=== PATIENT | female | born 1975 | race Two or more races ===

== ENCOUNTER → 2020-12-23 09:05 | Outpatient (BNVA) | payer MEDICAID, SELFPAY | PROVIDERS: Referring Provider Registered Nurse; Visit Provider Physician Assistant ==

== ENCOUNTER 2020-12-27 10:31 | Outpatient (REF) | payer MEDICAID, SELFPAY ==
[2020-12-27 11:15] LABS: MANUAL DIFF FLAG NO
[2020-12-27 11:19] LABS: Basophils Percent Auto 0.4 % (0-2); Eosinophils Absolute Auto 0.2 X10*3/uL (0.0-0.4); Eosinophils Percent Auto 2.8 % (0-4); Hemoglobin 12.7 g/dl (12.0-16.0); Imm Gran Abs Auto 0.03 X10*3/uL (0.00-0.03); Imm Gran Pct Auto 0.4 % (0.0-0.4); Lymphocytes Absolute Auto 2.1 X10*3/uL (1.2-4.9); Lymphocytes Percent Auto 29.1 % (20-40); Mean Corpuscular HGB Conc 32.6 g/dl (31.0-35.0); Mean Corpuscular Hemoglobin 29.7 pg (27.0-33.0); Mean Corpuscular Volume 91.1 fL (80-98); Mean Platelet Volume 10.1 fL (9.4-12.3); Monocytes Absolute Auto 0.6 X10*3/uL (0.1-1.2); Monocytes Percent Auto 8.1 % (2-11); Neutrophils Absolute Auto 4.2 X10*3/uL (2.0-8.3); Neutrophils Percent Auto 59.2 % (45-73); Platelet Count 317 X10*3/uL (160-400); Red Blood Count 4.28 X10*6/uL (4.20-5.50); White Blood Count 7.2 X10*3/uL (4.8-10.8)
[2020-12-27 11:41] LABS: Alanine Aminotransferase 18 U/L (0-31); Albumin Level 4.1 g/dL (3.5-5.0); Alkaline Phosphatase 85 U/L (39-117); Anion Gap 11 (12-20); Aspartate Amino Transferase 19 U/L (5-31); Bilirubin Total 0.8 mg/dL (0.0-1.0); Blood Urea Nitrogen 16 mg/dL (9-16); Calcium 9.2 mg/dL (8.4-10.2); Carbon Dioxide 26 mmol/L (22-29); Chloride 107 mmol/L (96-108); Cholesterol 169 mg/dL; Estimated Glomerular Filt Rate > 60; Glucose Random 97 mg/dL (60-115); HDL Cholesterol 37 mg/dL; LDL Cholesterol Calculated 112 mg/dl; Potassium 4.2 mmol/L (3.3-5.1); Sodium 140 mmol/L (135-145); Total Protein 7.2 g/dL (6.5-8.0); Triglycerides 100 mg/dL
[2020-12-27 12:02] LABS: Thyroid Stimulating Hormone 1.28 uIU/mL (0.32-4.0)
== END 2020-12-27 10:32 | disposition home or self-care (01) ==
LOC: HO.LAB 10:31
PROVIDERS: Visit Provider Physician Assistant
DX: R10.11 Right upper quadrant pain (principal); R74.01 Elevation of levels of liver transaminase levels; K76.0 Fatty (change of) liver, not elsewhere classified; K59.09 Other constipation
CPT/HCPCS: 36415; 80053; 80061; 84443; 85025

== ENCOUNTER 2021-01-01 09:57 | Outpatient (REF) | payer MEDICAID, SELFPAY ==
--- NOTE | ~2021-01-01 | FL_ITS ---
EXAMINATION: FL BARIUM SWALLOW CLINICAL INFORMATION: Gastroesophageal reflux disease. COMPARISON: None TECHNIQUE: Barium swallow examination is performed using fluoroscopic evaluation in addition to multiple fluoroscopic spot views. The patient is imaged both upright and prone and using both thick and thin sulfate along with effervescent granules. Fluoroscopy time: 1.5 minutes DAP: 23.6 Gycm2 Images: 57 FINDINGS: Following oral administration of thick barium and barium-coated turkey in upright view, there is normal propagation of bolus from the oral cavity through the pharynx, the esophagus into stomach without any evidence of obstruction, narrowing or stricture. On placing patient prone and oral administration of thin barium, there is good distention of the entire barium without any intraluminal filling defect or extrinsic impression. Mild gastroesophageal reflux was seen in supine lying position. There is no evidence of hiatal hernia. FL/FL barium swallow IMPRESSION: Unremarkable barium swallow exam.
== END 2021-01-01 09:58 | disposition home or self-care (01) ==
LOC: HO.XRAY 09:57
PROVIDERS: Visit Provider Physician Assistant
DX: K21.9 Gastro-esophageal reflux disease without esophagitis (principal)
CPT/HCPCS: 74220

== ENCOUNTER → 2021-02-05 12:48 | Outpatient (BNVA) | payer OTHER, SELFPAY | PROVIDERS: PCP Internal Medicine; Visit Provider Physician Assistant ==

== ENCOUNTER → 2021-02-09 14:17 | Outpatient (BNVA) | payer MEDICAID, SELFPAY | PROVIDERS: PCP Internal Medicine; Visit Provider Physician Assistant ==

== ENCOUNTER 2021-03-30 14:01 | Outpatient (REF) | payer MEDICAID, SELFPAY ==
--- NOTE | ~2021-03-30 | MM_ITS ---
EXAMINATION: MM SCREENING DIGITAL BREAST TOMOSYNTHESIS, BILATERAL CLINICAL INFORMATION: Screening. Asymptomatic. The lifetime risk of breast cancer based on the Tyrer-Cuzick Model is 7%. COMPARISON: Mammography: 03/28/2020, 03/16/2019, 07/25/2018, 01/18/2018, 01/03/2018 (baseline) TECHNIQUE: Digital breast tomosynthesis is performed in both the craniocaudal and mediolateral oblique views along with computer-aided detection (CAD). Synthesized 2D images are generated from the tomosynthesis. Additional right MLO view is provided. FINDINGS: There are scattered areas of fibroglandular density (ACR BI-RADS breast composition Category b). There are no significant masses, abnormal calcifications, or other abnormalities. No architectural abnormality. The axilla are unremarkable. The right breast has a new incidental group of 3 or 4 small benign oil cysts anterior 9:00 position, largest only 0.5 cm. The skin contours are smooth. There is no coarsening of the Jair's ligaments. MM/MM tomosynthesis screening BI IMPRESSION: 1. No mammographic evidence of malignancy. 2. Incidental small benign oil cysts anterolateral right breast. ASSESSMENT: BI-RADS 2: Benign RECOMMENDATION: Routine annual mammography screening. This patient's information was entered into a reminder system with a target due date for their next mammogram.
== END 2021-03-30 14:02 | disposition home or self-care (01) ==
LOC: HO.MAMMO 14:01
PROVIDERS: PCP Internal Medicine; Visit Provider Internal Medicine
DX: Z12.31 Encounter for screening mammogram for malignant neoplasm of breast (principal)
CPT/HCPCS: 77063; 77067

== ENCOUNTER 2022-04-05 13:05 | Outpatient (REF) | payer MEDICAID, SELFPAY ==
--- NOTE | ~2022-04-05 | MM_ITS ---
EXAMINATION: MM SCREENING DIGITAL BREAST TOMOSYNTHESIS, BILATERAL CLINICAL INFORMATION: Screening. Asymptomatic. The lifetime risk of breast cancer based on the Tyrer-Cuzick Model is 7%. COMPARISON: Mammography: 03/30/2021, 03/28/2020, 03/16/2019 TECHNIQUE: Digital breast tomosynthesis is performed in both the craniocaudal and mediolateral oblique views along with computer-aided detection (CAD). Synthesized 2D images are generated from the tomosynthesis. FINDINGS: There are scattered areas of fibroglandular density (ACR BI-RADS breast composition Category b). There is no significant mass and no architectural abnormality or abnormal calcifications. The oil cysts anterior outer right breast are decreased in size, one showing faint attenuation consistent with fat necrosis. There is no skin thickening or coarsening of the Jair's ligaments. The axilla are unremarkable. MM/MM tomosynthesis screening BI IMPRESSION: No significant changes from prior studies. ASSESSMENT: BI-RADS 2: Benign RECOMMENDATION: Routine annual mammography screening. This patient's information was entered into a reminder system with a target due date for their next mammogram.
== END 2022-04-05 13:06 | disposition home or self-care (01) ==
LOC: HO.MAMMO 13:05
PROVIDERS: PCP Nurse Practitioner; Visit Provider Nurse Practitioner
DX: Z12.31 Encounter for screening mammogram for malignant neoplasm of breast (principal)
CPT/HCPCS: 77063; 77067

== ENCOUNTER 2023-03-28 19:41 | Outpatient (REF) | payer MEDICAID, SELFPAY ==
[2023-03-29 05:45] LABS: CT PCR NOT DETECTED (Not Detect.); NG PCR NOT DETECTED (Not Detect.)
== END 2023-03-28 19:42 | disposition home or self-care (01) ==
LOC: HO.HHCLNP 19:41
PROVIDERS: Visit Provider Advanced Practice Midwife
DX: N93.9 Abnormal uterine and vaginal bleeding, unspecified (principal)
CPT/HCPCS: 0353U

== ENCOUNTER 2023-04-11 12:46 | Outpatient (REF) | payer OTHER, SELFPAY | END 2023-04-11 12:47 | disposition home or self-care (01) | LOC: HO.MAMMO 12:46 | PROVIDERS: PCP General Practice; Visit Provider General Practice | DX: Z12.31 Encounter for screening mammogram for malignant neoplasm of breast (principal) | CPT/HCPCS: 77063; 77067 ==

== ENCOUNTER → 2023-04-11 13:00 | Outpatient (BNV) | payer OTHER, SELFPAY | PROVIDERS: PCP General Practice; Visit Provider Radiology Diagnostic Radiology | DX: Z12.31 Encounter for screening mammogram for malignant neoplasm of breast (principal) | CPT/HCPCS: 77063; 77067 ==

== ENCOUNTER 2023-04-21 11:27 | Outpatient (REF) | payer MEDICAID, SELFPAY ==
--- NOTE | ~2023-04-21 | US_ITS ---
EXAMINATION: US PELVIS CLINICAL INFORMATION: Abnormal uterine bleeding; the patient is currently having her menstrual period. COMPARISON: Pelvic ultrasound dated 06/25/2016. TECHNIQUE: Ultrasound of the pelvis is performed using both transabdominal and transvaginal transducers along with Doppler. Transvaginal imaging is performed due to inadequate visualization transabdominally. FINDINGS: Uterus: The uterus is anteverted and anteflexed. The uterus measures 7.9 x 4.2 x 5.4 cm. The double wall endometrial thickness is 1.3 mm. The uterus is smooth in contour and has normal myometrial echogenicity. No visible fibroid. Adnexa: Both ovaries are visualized. There is normal color flow to the adnexa. There is no ovarian torsion. There is mild free fluid adjacent to the left ovary. Right ovary measures 3.9 x 2.0 x 2.7 cm, volume 11.0 mL. The left ovary contains a 1.2 x 1.2 x 1.4 cm hemorrhagic cyst with a mildly internal reticulated contents. Left ovary measures 2.6 x 2.4 x 2.3 cm, volume 7.5 mL. The left ovary contains a 2.2 x 1.5 x 2.0 cm mildly complex cyst with fine septations. US/US pelvic and transvaginal IMPRESSION: 1. There is a 2.0 cm mildly complex left ovarian cyst, with fine septations. Recommend repeat pelvic ultrasound examination in 6-12 weeks to ensure regression/resolution. A further benign-appearing right ovarian hemorrhagic cyst is noted. 2. There is a small amount of free fluid noted adjacent to the left ovary.
== END 2023-04-21 11:28 | disposition home or self-care (01) ==
LOC: HO.US 11:27
PROVIDERS: PCP General Practice; Visit Provider Advanced Practice Midwife
DX: N93.9 Abnormal uterine and vaginal bleeding, unspecified (principal)
CPT/HCPCS: 76830; 76856

== ENCOUNTER 2023-05-11 15:24 | Outpatient (REF) | payer OTHER, SELFPAY ==
[2023-05-11 17:08] LABS: Free T4 (Free Thyroxine) 0.88 ng/dL (0.71-1.85); T4 Thyroxine 7.2 ug/dL (4.5-12.0); TSH reflex Free T4 1.25 uIU/mL (0.32-4.0); Thyroid Stimulating Hormone 1.25 uIU/mL (0.32-4.0)
[2023-05-12 07:48] LABS: Triiodothyronine T3 Total 109 ng/dL (76-181)
== END 2023-05-11 15:25 | disposition home or self-care (01) ==
LOC: HO.HHCL 15:24
PROVIDERS: Visit Provider Advanced Practice Midwife
DX: N93.9 Abnormal uterine and vaginal bleeding, unspecified (principal)
CPT/HCPCS: 36415; 84436; 84439; 84443; 84480

== ENCOUNTER 2023-11-04 16:42 | Outpatient (REF) | payer OTHER, SELFPAY ==
[2023-11-05 18:07] LABS: C. trachomatis RNA TMA NOT DETECTED (NOT DETECTED); Candida glabrata RNA NOT DETECTED (NOT DETECTED); Candida species RNA NOT DETECTED (NOT DETECTED); N. gonorrhoeae RNA TMA NOT DETECTED (NOT DETECTED); Trichomonas vaginalis RNA NOT DETECTED (NOT DETECTED)
== END 2023-11-04 16:43 | disposition home or self-care (01) ==
LOC: HO.HHCLNP 16:42
PROVIDERS: Visit Provider General Practice
DX: R30.0 Dysuria (principal); N92.3 Ovulation bleeding
CPT/HCPCS: 36415; 81513; 87481; 87491; 87591; 87661

== ENCOUNTER 2024-04-16 12:38 | Outpatient (REF) | payer OTHER, SELFPAY ==
--- NOTE | ~2024-04-16 | MM_ITS ---
EXAMINATION: MM SCREENING DIGITAL BREAST TOMOSYNTHESIS, BILATERAL CLINICAL INFORMATION: Screening. Asymptomatic. COMPARISON: Mammography: Comparison is made with available priors TECHNIQUE: Digital breast tomosynthesis and 2D images is performed in both the craniocaudal and mediolateral oblique views along with computer-aided detection (CAD). FINDINGS: There are scattered areas of fibroglandular density (ACR BI-RADS breast composition Category b). There are no significant masses, abnormal calcifications, or other abnormalities. MM/MM tomosynthesis screening BI IMPRESSION: No mammographic evidence of malignancy. ASSESSMENT: BI-RADS BI-RADS 1 - Negative RECOMMENDATION: Routine annual mammography screening. 1 year F/U This examination should not preclude the clinical evaluation of a suspicious palpable abnormality. This patient's information was entered into a reminder system with a target due date for their next mammogram. Electronically signed by: Angle Malcolm DO 05/11/2024 12:11 PM EDT
== END 2024-04-16 12:39 | disposition home or self-care (01) ==
LOC: HO.MAMMO 12:38
PROVIDERS: PCP General Practice; Visit Provider General Practice
DX: Z12.31 Encounter for screening mammogram for malignant neoplasm of breast (principal)
CPT/HCPCS: 77063; 77067

== ENCOUNTER → 2024-04-16 12:45 | Outpatient (BNV) | payer OTHER, SELFPAY | PROVIDERS: PCP General Practice; Visit Provider Internal Medicine | DX: Z12.31 Encounter for screening mammogram for malignant neoplasm of breast (principal) | CPT/HCPCS: 77063; 77067 ==

== ENCOUNTER 2025-01-04 14:27 | Outpatient (REF) | payer OTHER, SELFPAY ==
--- OUTSIDE RECORDS SUMMARY | 2025-01-04 14:29 | XMS_ITS | Encounter Summary ---
Author Organization [employer] Address [address] [place] [address] Care Team Providers Care Information Broker Name Role Phone Inés Brunner MD Primary Care Provider [phone] Encounter Details Date Type Department Care Team (Late st Contact Info) Description 10/19/2022 Abstract [facility] MEDICINE [address] [place], [place] [phone] Inés Brunner MD [address] [place], [place] [phone] Social History Tobacco Use Types Packs/Day Years Used Date Smoking Tobacco: Never Smokeless Tobacco: Never Depression Answer Date Recorded Patient Health Questionnaire-2 Score 0 10/20/2022 Comments Unknown Sex and Gender Information Value Date Recorded Sex Assigned at Female 06/21/2022 10:17 AM EDT Legal Sex Female 10:17 AM EDT Gender Identity Female 06/21/2022 10:17 AM EDT Sexual Orientation Straight 06/21/2022 10 :17 AM EDT COVID-19 Exposure Response Date Recorded In the last 10 days, have yo u been in contact with someone who was confirmed or suspected to have Coronavirus/COVID-19? No / Unsure 10/20/2022 1:58 PM EST documented as of this encounter Functional Status * Over the past 2 weeks, how often have you been bothered by any of the following problems? Question Answer Date of Assessment Author Little interest or pleasure in doing things Not at all 10/20/2022 2:10 PM EST Cheryl Hernández MA Feeling down, depressed, or hopeless Not at all 10/20/2022 2:10 PM EST Cheryl Hernández MA Patient Health Questionnaire-2 Score 0 10/20/2022 2:10 PM Cindy Yee MA documented as of this encounter Plan of Treatment Not on file documented as of this encounter Visit Diagnoses Not on filedocumented in this encounter Care Teams Information Broker Relationship Specialty Start Date End Date Inés Brunner MD [address] [place] [address] PCP - General Family Medicine 04/13/22 documented as of this encounter
--- OUTSIDE RECORDS SUMMARY | 2025-01-04 14:29 | XMS_ITS | Encounter Summary ---
Author Organization [employer] Address [address] [facility] [address] [address] [place] [address] Care Team Providers Care Load Out Supervisor Name Role Phone Inés Brunner MD Primary Care Provider [phone] Reason for Visit * Reason Comments office vist Encounter Details Date Type Department Care Team ([facility] st Contact Info) Description 01/02/2025 4:00 PM EDT Office Visit [facility] MEDICINE [address] [place], [place] [phone] Inés Brunner MD [address] [place], [place] [phone] Dietary counseling; Exercise counseling; Class 2 obesity without serious comorbidity with body mass index (BMI) of 37.0 to 37.9 in adult, unspecified obesity type; Seasonal allergies Social History Tobacco Use Types Packs/Day Years Used Date Smoking Tobacco: Never Passive Smoke Exposure: Never Smokeless Tobacco: Never Tobacco Cessation:Counseling Given: Not Answered Alcohol Use Standard Drinks/Week Comments Never 0 (1 standard drink = 0.6 oz pur e alcohol) Alcohol Answer Date Recorded How often do you have a drink containing alcohol ? 0 01/03/2025 How many drinks containing a lcohol do you have on a typical day when you are drinking? 0 01/03/2025 How often do you have six or more drinks on one occasion? 0 01/03/2025 Depression Answer Date Recorded Patient Health Questionnaire-9 Score 3 01/03/2025 Patient Health Questionnaire-9 Score 3 01/03/2025 Last PHQ-9: Questionnaire Data Not on file 0 01/03/2025 Housing Stability Answer Date Recorded What is your housing situation today? I have drew norman 01/03/[address] you li ve. Do you have problems with any of the following? None of the above 01/03/2025 Food Insecurity Answer Date Recorded Within the past 12 months, y ou worried that your food would run out before you got money to buy more: Never True 01/03/2025 Within the past 12 months,th e food you bought just didn't last and you didn't have enough money to get more: Never True Transportation Answer Date Recorded In the past 12 months, has l ack of transportation kept you from medical appts, meetings, work or from getting things needed for daily living? No 01/03/2025 Intimate Partner Violence Answer Date R ecorded Within the last year, have y ou been afraid of your partner or ex-partner? 2 01/03/2025 Within the last year, have y ou been humiliated or emotionally abused in other ways by your partner or ex-partner? 2 Within the last year, have y ou been kicked, hit, slapped, or otherwise physically hurt by your partner or ex-partner? 2 01/03/2025 Within the last year, have y ou been raped or forced to have any kind of sexual activity by your partner or ex-partner? 2 01/03/2025 Utilities Answer Date Recorded In the past 12 months, has t he electric, gas, oil or water company threatened to shut off services in your home? No 01/03/2025 Depression Answer Date Recorded Patient Health Questionnaire-2 Score 0 01/03/2025 Internet Access Answer Date Recorded Internet Access Q1 Yes 01/03/2025 Internet Access Q2 Not on file 01/03/2025 Comments No Intention Date Recorded No desire to become (finding) 0 01/02/2025 Sex and Gender Information Value Date Recorded Sex Assigned at Female 06/21/2022 10:17 AM EDT Legal Sex Female 10:17 AM EDT Gender Identity Female 06/21/2022 10:17 AM EDT Sexual Orientation Straight 06/21/2022 10 :17 AM EDT documented as of this encounter Last Filed Vital Signs Vital Sign Reading Time Taken Comments Blood Pressure 136/72 01/03/2025 12:12 PM EDT Pulse 90 01/02/2025 3:57 PM EDT Temperature 36.4 ??C (97.6 ??F) 01/02/2025 3:57 PM ED T Respiratory Rate 20 01/02/2025 3:57 PM EDT Oxygen Saturation 96% 01/02/2025 3:57 PM EDT Inhaled Oxygen Concentration - - Weight 94.2 kg (207 lb 9.6 oz) 01/02/2025 3:57 P M EDT Height 157.5 cm (5' 2 ) 01/02/2025 3:57 PM EDT Body Mass Index 37.97 01/02/2025 3:57 PM EDT documented in this encounter Functional Status * Over the past 2 weeks, how often have you been bothered by any of the following problems? Question Answer Date of Assessment Author Little interest or pleasure in doing things Not at all 01/03/2025 12:09 PM EDT Inés Brunner MD Feeling down, depressed, or hopeless Not at all 01/03/2025 12:09 PM ANGELIQUET Inés Brunner MD Patient Health Questionnaire -2 Score 0 01/03/2025 12:09 PM EDT Inés Brunner MD * Question Answer Date of Assessment Author Trouble falling or staying asleep, or sleeping too much More than half the days 01/03/2025 12:09 PM ANGELIQUET Inés Brunner MD Feeling tired or having little energy Several days 01/03/2025 12:09 PM ANGELIQUET Inés Brunner MD Poor appetite or overeating Not at all 01/03/2025 12:09 PM ANGELIQUET Inés Brunner MD Feeling bad about yourself - or that you are a failure or have let yourself or your family down Not at all 01/03/2025 12:09 PM ANGELIQUET Inés Brunner MD Trouble concentrating on things, such as reading the newspaper or watching television Not at all 01/03/2025 12:09 PM ANGELIQUET Inés Brunner MD Moving or speaking so slowly that other people could have noticed? Or the opposite - being so fidgety or restless that you have been moving around a lot more than usual. Not at all 01/03/2025 12:09 PM ANGELIQUET Inés Brunner MD Thoughts that you would be better off or hurting yourself in some way Not at all 01/03/2025 12:09 PM Inés Hoskins MD Patient Health Questionnaire-9 Score 3 01/03/2025 12:09 PM EDT Inés Brunner MD * If you checked off any problems on this questionnaire so far, Question Answer Date of Assessment Author How difficult have these problems made it for you to do your work, take care of things at home, or get along with other people? Not difficult at all 01/03/2025 12:09 PM EDInés Glasgow MD documented as of this encounter Progress Notes * Inés Brunner MD - 01/02/2025 4:00 PM EDT SUBJECTIVE: Sarah Teresa is a 49 y.o. year old female who presents for chronic disease management. Denies recent illness, ER visit, or hospitalization. Acute Concerns: Not sleeping well, thinking of many things at night Interim Updates: GERD- stopped taking Prilosec, doing well HTN, white coat- 120s/80s at home, checks every few weeks Brings log from home showing values <140/90 Elevated in clinic Back pain- intermittent, finds walking and stretching helpful Sometimes radiates to hip and knee Does not want to take pain medication Has done PT and JASON without improvement Will trial Diclofenac Irregular menses x 3 months (Aug-November 2024) Pap NIL/HPV neg, gonorrhea, chlamydia, trichomonas neg 02/2022. Regular menses prior to this. Has tubal ligation at age 25 1 [facility] AMAB partner x 30y, no safety concerns. Rare pain with sex, no other vaginal or urinary symptoms. Having hot flashes, declines medications to help with vasomotor symptoms Health maintenance: Mammo 03/2024 Birads 2 Pap 01/2022 NIL, HPV neg Colon ca- will do Cologuard Social History Problem List[1] Surgical History[2] Family History[3] Social History Social History Narrative Lives with , her two children, their partners, and two grandchildren Works as homemaker Review of Systems Constitutional: Negative. Respiratory: Negative. Cardiovascular: Negative. Gastrointestinal: Negative. Musculoskeletal: Negative. OBJECTIVE: Vitals: 01/02/25 1557 01/03/25 1212 BP: (!) 158/82 136/72 BP Location: Left arm Patient Position: Sitting BP Cuff Size: Adult Pulse: 90 Resp: 20 Temp: 97.6 ??F (36.4 ??C) TempSrc: Oral SpO2: 96% Weight: 207 lb 9.6 oz (94.2 kg) Height: 5' 2 (1.575 m) Physical Exam Vitals and nursing note reviewed. Constitutional: Appearance: Normal appearance. HENT: Head: Normocephalic and atraumatic. Cardiovascular: Rate and Rhythm: Normal rate and regular rhythm. Pulses: Normal pulses. Heart sounds: Normal heart sounds. Pulmonary: Effort: Pulmonary effort is normal. Breath sounds: Normal breath sounds. Skin: General: Skin is warm and dry. Neurological: General: No focal deficit present. Mental Status: She is alert and oriented to person, place, and time. Psychiatric: Mood and Affect: Mood normal. Behavior: Behavior normal. ASSESSMENT/PLAN Problem List Items Addressed This Visit Seasonal allergies Relevant Medications cetirizine (ZyrTEC) 10 MG tablet fluticasone (Flonase Allergy Relief) 50 MCG/ACT nasal spray Other Visit Diagnoses Dietary counseling Exercise counseling Class 2 obesity without serious comorbidity with body mass index (BMI) of 37.0 to 37.9 in adult, unspecified obesity type Relevant Orders Lipid Panel, Standard Comprehensive Metabolic Panel Hemoglobin A1c Follow Up: 6 months or sooner prn Allergies[4] Allergen Reactions Apples [Apple Juice] Itching Itchy and rash on lips. Plums too Pear Itching Itchy and rash on lips Current Medications[5] Current Outpatient Medications: Blood Pressure kit, Take by [facility]. (Non-drug; combo) route every day, Disp: , Rfl: cetirizine (ZyrTEC) 10 MG tablet, Take 1 tablet (10 mg) by mouth Once per day., Disp: 90 tablet, Rfl: 3 cholecalciferol (Vitamin D High Potency) 25 MCG (1000 UT) capsule, Take 1 capsule (25 mcg) by mouthOnce per day., Disp: 90 capsule, Rfl: 3 Diclofenac Sodium 1 % cream, Apply 1 Application topically if needed in the morning and at bedtime (back or hip pain)., Disp: 120 g, Rfl: 3 EPINEPHrine (EpiPen 2-Liang) 0.3 MG/0.3ML injection syringe, inject 0.3 milliliter by intramuscular route once as needed for anaphylaxis, then call 911, Disp: , Rfl: fluticasone (Flonase Allergy Relief) 50 MCG/ACT nasal spray, inhale 2 spray by intranasal route every day in each nostril, Disp: 48 g, Rfl: 3 Nepali Translation: Provided by [facility] staff member ESSENCE Jurado [1] Patient Active Problem List Diagnosis Gastroesophageal reflux disease Obesity (BMI 35.0-39.9 without comorbidity) 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 Plums too Pear Itching Itchy and rash on lips [5] Current Outpatient Medications: Blood Pressure kit, Take by [facility]. (Non-drug; combo) route every day, Disp: , Rfl: cetirizine (ZyrTEC) 10 MG tablet, Take 1 tablet (10 mg) by mouth Once per day., Disp: 90 tablet, Rfl: 3 cholecalciferol (Vitamin D High Potency) 25 MCG (1000 UT) capsule, Take 1 capsule (25 mcg) by mouthOnce per day., Disp: 90 capsule, Rfl: 3 Diclofenac Sodium 1 % cream, Apply 1 Application topically if needed in the morning and at bedtime (back or hip pain)., Disp: 120 g, Rfl: 3 EPINEPHrine (EpiPen 2-Liang) 0.3 MG/0.3ML injection syringe, inject 0.3 milliliter by intramuscular route once as needed for anaphylaxis, then call 911, Disp: , Rfl: fluticasone (Flonase Allergy Relief) 50 MCG/ACT nasal spray, inhale 2 spray by intranasal route every day in each nostril, Disp: 48 g, Rfl: 3 documented in this encounter Plan of Treatment Scheduled Orders Name Type Priority Associated Diagnoses Orde r Schedule Lipid Panel, Standard Lab Routine Class 2 obesity without serious comorbidity with body mass index (BMI) of 37.0 to 37.9 in adult, unspecified obesity type Expected: 01/02/2025 (Approximate), Expires: 01/02/2026 Comprehensive Metabolic Panel Lab Routine Class 2 obesity without serious comorbidity with body mass index (BMI) of 37.0 to 37.9 in adult, unspecified obesity type Expected: 01/02/2025 (Approximate), Expires: 01/02/2026 Hemoglobin A1c Lab Routine Class 2 obesity without serious comorbidity with body mass index (BMI) of 37.0 to 37.9 in adult, unspecified obesity type Expected: 01/02/2025 (Approximate), Expires: 01/02/2026 documented as of this encounter Visit Diagnoses Diagnosis Dietary counseling Dietary surveillance and counseling Exercise counseling Class 2 obesity without serious comorbidity with body mass index (BMI) of 37.0 to 37.9 in adult, unspecified obesity type Seasonal allergies Allergic rhinitis, cause unspecified documented in this encounter Additional Health Concerns Assessment Noted Time PHQ-9 Depression Total Score: 3 01/04/20 25 12:09 PM EDT documented as of this encounter Care Teams Load Out Supervisor Relationship Specialty Start Date End Date Inés Brunner MD [address] [place] [id number] PCP - General Family Medicine 04/13/22 documented as of this encounter
--- OUTSIDE RECORDS SUMMARY | 2025-01-04 14:29 | XMS_ITS | Encounter Summary ---
Author Organization [employer] Address [address] [place] [address] Care Team Providers Care Refrigeration Houseman Name Role Phone Inés Brunner MD Primary Care Provider [phone] Reason for Visit * Reason Comments Med Refill Encounter Details Date Type Department Care Team ([facility] st Contact Info) Description 01/02/2025 Refill [facility] [address] [place], [place] [phone] Inés Brunner MD [address] [place] [address] Social History Tobacco Use Types Packs/Day Years Used Date Smoking Tobacco: Never Passive Smoke Exposure: Never Smokeless Tobacco: Never Alcohol Use Standard Drinks/Week Comments Never 0 [...] the past 12 months, has t he [employer], [employer], oil or water [employer] threatened to shut off services in your home? No 01/03/2025 Depression Answer Date Recorded Patient Health Questionnaire-2 Score 0 01/03/2025 Internet Access Answer Date Recorded Internet Access Q1 Yes 01/03/2025 Internet Access Q2 Not on file 01/03/2025 Comments No Sex and Gender Information Value Date Recorded Sex Assigned at Female 06/21/2022 10:17 AM EDT Legal Sex Female 10:17 AM EDT Gender Identity Female 06/21/2022 10:17 AM EDT Sexual Orientation Straight 06/21/2022 10 :17 AM EDT documented as of this encounter Functional Status * Over the past 2 weeks, how often have you been bothered by any of the following problems? Question Answer Date of Assessment Author Little interest or pleasure in doing things Not at all 01/03/2025 12:09 PM Inés Hoskins MD Feeling down, depressed, or hopeless Not at all 01/03/2025 12:09 PM Inés Hoskins MD Patient Health Questionnaire -2 Score 0 01/03/2025 12:09 PM Inés Hoskins MD * Question Answer Date of Assessment Author Trouble falling or staying asleep, or sleeping too much More than half the days 01/03/2025 12:09 PM Inés Hoskins MD Feeling tired or having little energy [...] television Not at all 01/03/2025 12:09 PM Inés Hoskins MD Moving or speaking so slowly that other people could have noticed? Or the opposite - being so fidgety or restless that you have been moving around a lot more than usual. Not at all 01/03/2025 12:09 PM Inés Hoskins MD Thoughts that you would be better off or hurting yourself in some way Not at all 01/03/2025 12:09 PM Inés Hoskins MD Patient Health Questionnaire-9 Score 3 01/03/2025 12:09 PM Inés Hoskins MD * If you checked off any problems on this questionnaire so far, Question Answer Date of Assessment Author How difficult have these problems made it for you to do your work, take care of things at home, or get along with other people? Not difficult at all 01/03/2025 12:09 PM Inés Hoskins MD documented as of this encounter Miscellaneous Notes * Telephone Encounter - Inés Brunner MD - 01/02/2025 4:32 PM EDT Already responded to in patient visit documented in this encounter Plan of Treatment Not on file documented as of this encounter Visit Diagnoses Not on filedocumented in this encounter Additional Health Concerns Assessment Noted Time PHQ-9 Depression Total Score: 0 11/04/19 24 11:34 AM EDT documented as of this encounter Care Teams Refrigeration Houseman Relationship Specialty Start Date End Date Inés Brunner MD [address] [place] [id number] PCP - General Family Medicine 04/13/22 documented as of this encounter
--- OUTSIDE RECORDS SUMMARY | 2025-01-04 14:29 | XMS_ITS | Encounter Summary ---
Author Organization [employer] Address [address] [place] [address] Care Team Providers Care Chief Scientist Name Role Phone Inés Brunner MD Primary Care Provider [phone] Encounter Details Date Type Department Care Team (Latest Contact Info) Description 01/02/2025 Travel Social History Tobacco Use Types Packs/Day Years [...] AM EDT documented as of this encounter Plan of Treatment Not on file documented as of this encounter Visit Diagnoses Not on filedocumented in this encounter Additional Health Concerns Assessment Noted Time PHQ-9 Depression Total Score: 0 11/04/19 24 11:34 AM EDT documented as of this encounter Care Teams Chief Scientist Relationship Specialty Start Date End Date Inés Brunner MD [address] [place] [address] PCP - General Family Medicine 04/13/22 documented as of this encounter
--- OUTSIDE RECORDS SUMMARY | 2025-01-04 14:29 | XMS_ITS | Clinical Summary ---
Author Organization [employer] Address [address] [facility] [address] [place] [address] Care Team Providers Care Kiln Pusher Name Role Phone Inés Brunner MD Primary Care Provider [phone] Allergies Active Allergy Reactions Criticality Noted Date Comments Apple Juice Itching 10/20/2022 Itchy and rash on lips. Plums too Pear Itching 10/20/2022 Itchy and rash on lips Medications EPINEPHrine (EpiPen 2-Liang) 0.3 MG/0.3ML injection syringe inject 0.3 milliliter by intramuscular route once as needed for anaphylaxis, then call 911 01/06/20 22 Active Blood Pressure kit Take by [facility]. (Non-drug; combo) route every day 04/08/20 22 Active Diclofenac Sodium 1 % cream Apply 1 Application topically if needed in the morning and at bedtime (back or hip pain). 120 g 3 11/04/19 24 Active cetirizine (ZyrTEC) 10 MG tablet Take 1 tablet (10 mg) by mouth Once per day. 90 tablet 3 01/03/20 25 Active cholecalcifer ol (Vitamin D High Potency) 25 MCG (1000 UT) capsule Take 1 capsule (25 mcg) by mouth Once per day. 90 capsule 3 01/03/20 25 Active fluticasone (Flonase Allergy Relief) 50 MCG/ACT nasal sprayIndicati ons:Seasonal allergies inhale 2 spray by intranasal route every day in each nostril 48 g 3 01/03/20 25 Active fluticasone (Flonase Allergy Relief) 50 MCG/ACT nasal sprayIndicati ons:Seasonal allergies inhale 2 spray by intranasal route every day in each nostril 48 g 3 10/30/19 23 2024 Discontinued(R eorder (will not trigger notification to Pharmacy)) cetirizine (ZyrTEC) 10 MG tablet Take 1 tablet (10 mg) by mouth in the morning. 90 tablet 3 06/28/20 23 2024 Discontinued(R eorder (will not trigger notification to Pharmacy)) cholecalcifer ol (Vitamin D High Potency) 25 MCG (1000 UT) capsule TAKE 1 CAPSULE BY MOUTH EVERY DAY 90 capsule 3 01/05/20 24 2024 Discontinued(R eorder (will not trigger notification to Pharmacy)) Active Problems Problem Noted Date Diagnosed Date Dysuria 11/04/2023 Assessment & Plan (11/06/2023 7:05 PM EDT): UA negative for infection SureSwab negative Continue symptomatic management May have been related to menstrual bleeding Chronic midline low back pain without sciatica 0 11/04/2023 Assessment & Plan (11/06/2023 7:06 PM EDT): Trial Diclofenac gel Continue walking and stretching as tolerated Intermenstrual bleeding 05/11/2023 Assessment & Plan (05/11/2023 3:32 PM EDT): ? 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 04/08/2022 Assessment & Plan (10/20/2022 2:52 PM EST): Normal at home Does not need daily antihypertensive Continue to monitor Seasonal allergies 01/05/2022 Obesity (BMI 35.0-39.9 without comorbidity) 04/2018 Gastroesophageal reflux disease 03/25/2017 Assessment & Plan (10/20/2022 2:52 PM EST): Feels better without Prilosec now Continue lifestyle mgmt Skin tag 03/28/2013 Encounters Date Type Department Care Team Description 01/02/2025 4:00 PM EDT Office Visit [facility] [address] [place] [address] Inés Brunner MD Dietary counseling; Exercise counseling; Class 2 obesity without serious comorbidity with body mass index (BMI) of 37.0 to 37.9 in adult, unspecified obesity type; Seasonal allergies 01/02/2025 Travel 01/02/2025 Refill [facility] [address] [place] [address] Inés Brunner MD 12/26/2024 Patient Outreach [facility] [address] [place] [address] Inés Brunner MD Pre-visit Planning ((Unable to reach for PVP screening, LVM)) 10/19/2024 3:00 PM EST Office Visit [facility] [address] [place], [place] [phone] Mauro, Halle, OD Vitreoretinal tuft of left eye (Primary Dx); Hyperopia of both eyes with astigmatism and presbyopia 10/19/2024 Travel 10/17/2024 Telephone [facility] [address] [place], [place] [phone] Inés Brunner MD recall from Last 3 Months Immunizations Immunization Administration Dates Next Due Hep B, adult 05/15/2010,11/11/2008 TD (adult), 2 Lf tetanus tox oid, preservative free, adsorbed 11/11/2008 Tdap 06/24/2017 Family History Medical History Relation Name Comments Colon cancer Paternal Grandmother Glaucoma Neg Hx Relation Name Status Comments Paternal Grandmother Social History Tobacco Use Types Packs/Day Years [...] the past 12 months, has t he [employer], gas, oil or water [employer] threatened to shut off services in your [...] Orientation Straight 06/21/2022 10 :17 AM EDT Last Filed Vital Signs Vital Sign Reading [...] Mass Index 37.97 01/02/2025 3:57 PM EDT Plan of Treatment Health Maintenance Due Date Last Done Comments CT Colonography 1975 Colonoscopy 1975 FIT 1975 FOBT 1975 Sigmoidoscopy 1975 Hepatitis B Vaccines (3 of 3 - 19+ 3-dose series) 07/10/2010 05/15/2010, 11/11/2008 COVID-19 Vaccine ( season) 2024 Influenza Vaccine (#1) 2024 Pap Smear 02/19/2025 02/19/2022 Colorectal Cancer Screening 11/10/2025 FIT DNA/Cologuard 11/10/2025 11/10/2022 Alcohol/Substance Use Screening 01/03/2026 01/03/2025 Depression Screening 01/03/2026 01/03/2025, 01/04/20 Family Planning (PISQ) 01/03/2026 01/03/2025 SDOH Screening 01/03/2026 01/03/2025 Tobacco Screening 01/03/2026 01/03/2025 Mammogram 04/16/2026 04/16/2024, 08/2 08/2022, 04/05/2022, Additional history exists Lipid Panel 01/12/2027 01/12/2022 Cervical Cancer Screening 02/19/2027 HPV/Cotest 02/19/2027 02/19/2022, 06/23/2016 DTaP/Tdap/Td Vaccines (2 - Td or Tdap) 06/24/2027 06/24/2017, 11/11/2008 Zoster Vaccines (1 of 2) 2027 RSV Patients and Patients Aged 60 years or older (1 - 1-dose 75+ series) 2052 HIV Screening Completed 01/12/2022 Hepatitis C Screening Completed 01/12/2022 HIB Vaccines Aged Out No longer eligi ble based on patient's age to complete this topic HPV Vaccines Aged Out No longer eligi ble based on patient's age to complete this topic Hepatitis A Vaccines Aged Out No long er eligible based on patient's age to complete this topic IPV Vaccines Aged Out No longer eligi ble based on patient's age to complete this topic Meningococcal B Vaccine Aged Out No l onger eligible based on patient's age to complete this topic Meningococcal Vaccine Aged Out No chad didier eligible based on patient's age to complete this topic Pneumococcal Vaccine: Pediatrics (0 to 5 Years) and At-Risk Patients (6 to 49) Years) Aged Out No longer eligible based on patient's age to complete this topic RSV under 20 months Aged Out No longe r eligible based on patient's age to complete this topic Rotavirus Vaccines Aged Out No longer eligible based on patient's age to complete this topic Procedures Procedure Name Priority Date/Time Associated Diagnosis Comments BI MAMMOGRAM SCREENING TOMOSYNTHESIS BILATERAL Routine 04/16/2024 12:45 PM EDT LAB COLOGUARD?? COLON CANCER SCREEN Routine 11/10/2022 THINPREP IMAGING PAP AND HPV MRNA E6/E7, WITH CT/NG, TRICHOMONAS Routine 02/19/2022 9:23 AM EDT ZZZ HISTORICAL HEPATITIS C AB W/REFL TO HCV RNA, QN, PCR Routine 01/12/2022 10:42 AM EDT HIV 1/2 ANTIGEN/ANTIBODY, FOURTH GENERATION W/RFL Routine 01/12/2022 10:42 AM EDT LIPID PANEL, STANDARD Routine 01/12/2022 10:42 AM EDT from Last 3 Months or Most Recently Relevant to Health Maintenance Results * BI Mammogram Screening Tomosynthesis Bilateral (04/16/2024 12:45 PM EDT) Anatomical Region Laterality Modality Breast Bilateral Mammography 04/16/2024 12:4 5 PM EDT Narrative 05/11/2024 12:14 PM EDT ? [facility] ? [address] ?[place] [address] ? Mammography Report ? Signed ? Patient: Sarah Perez I ?MR#: [id number] ?? [id number] ? : 1975 ?Acct:[id number] ? Age/Sex: 48 / F ?ADM Date: 04/16/24 ? Loc: HO.MAMMO ? Attending Dr: Inés Brunner MD ? Ordering Physician: Inés Brunner ?Results: 1Negative ? Date of Service: 04/16/24 ?Follow Up: 1 Year From Orig ?? inal Mammogram ? Procedure(s): MM tomosynthesis screening BI ?? Accession Number(s): [id number] ? cc: Inés Brunner ? EXAMINATION: ?? MM SCREENING DIGITAL BREAST TOMOSYNTHESIS, BILATERAL ? CLINICAL INFORMATION: ? Screening. Asymptomatic. ? COMPARISON: ?? Mammography: Comparison is made with available priors ? TECHNIQUE: ?? Digital breast tomosynthesis and 2D images ??is performed in both the ?? craniocaudal and mediolateral oblique views along with computer-aided ?? detection (CAD). ? FINDINGS: ?? There are scattered areas of fibroglandular density (ACR BI-RADS breast ?? composition Category b). ? There are no significant masses, abnormal calcifications, or other ?? abnormalities. ? MM/MM tomosynthesis screening BI ?? IMPRESSION: ?? No mammographic evidence of malignancy. ? ASSESSMENT: ? BI-RADS BI-RADS 1 - Negative ? RECOMMENDATION: ?? Routine annual mammography screening. ? 1 year F/U ? This examination should not preclude the clinical evaluation of a ?? suspicious palpable abnormality. ? This patient's information was entered into a reminder system with a ?? target due date for their next mammogram. ? Electronically signed by: ??Angle Malcolm DO ??05/11/2024 12:11 PM EDT ? Dictated By: ?Angle Malcolm DO ? Signed By: ?<Electronically signed by Angle Malcolm, DO in OV> ? 05/11/24 1211 ? DD/ 1245 ? TD/TT: 04/16/24 1305 ? Truck And Transport Mechanic: ? Procedure Note Donsarahter, Image - 05/11/2024 [facility] [address] [place] [address] Mammography Report Signed Patient: Sarah Perez [facility]#: [id number] : 1975Acct:[id number] Age/Sex: 48 / FADM Date: 04/16/24 Loc: [place] Attending Dr: Inés Brunner MD Ordering Physician: Luis Miguel Brunnerults: 1Negative Date of Service: 04/16/24Follow Up: 1 Year From Orig inal Mammogram Procedure(s): MM tomosynthesis screening BI Accession Number(s): [id number] cc: Inés Brunner EXAMINATION: MM SCREENING DIGITAL BREAST TOMOSYNTHESIS, BILATERAL CLINICAL INFORMATION: Screening. Asymptomatic. COMPARISON: Mammography: Comparison is made with available priors TECHNIQUE: Digital breast tomosynthesis and 2D images is performed in both the craniocaudal and mediolateral oblique views along with computer-aided detection (CAD). FINDINGS: There are scattered areas of fibroglandular density (ACR BI-RADS breast composition Category b). There are no significant masses, abnormal calcifications, or other abnormalities. MM/MM tomosynthesis screening BI IMPRESSION: No mammographic evidence of malignancy. ASSESSMENT: BI-RADS BI-RADS 1 - Negative RECOMMENDATION: Routine annual mammography screening. 1 year F/U This examination should not preclude the clinical evaluation of a suspicious palpable abnormality. This patient's information was entered into a reminder system with a target due date for their next mammogram. Electronically signed by: Angle Malcolm DO 05/11/2024 12:11 PM EDT RP Dictated By: Angle Malcolm DO Signed By: <Electronically signed by Angle Malcolm DO in OV> 05/11/24 1211 DD/ 1245 TD/TT: 04/16/24 1305 Truck And Transport Mechanic: Inés Brunner MD IMG BI PROCEDURES Edited Resul t - Final * Cologuard?? colon cancer screening (11/10/2022) Cologuard Cancer Screen Negative Stool 11/10/2022 Inés Brunner MD LAB MOLECULAR DIAGNOSTICS ORDE RABLES Final Result * THINPREP TIS PAP AND HPV mRNA E6/E7, CT/NG, TRICH (02/19/2022 9:23 AM EDT) Chlamydia trachomatis RNA, TMA, Urogenital NOT DETECTED NOT DETECTED [facility] Clinical Information: None given [facility] COMMENT SEE COMMENT [facility] Comment: The analytical performance characteristics of this assay, when used to test SurePath(TM) specimens have been determined by [employer]. The modifications have not been cleared or approved by the FDA. This assay has been validated pursuant to the CLIA regulations and is used for clinical purposes. ?? For additional information, please refer to https://Look.io..Fox Networks/faq/BUY092 (This link is being provided for information/ educational purposes only.) ?? COMMENT SEE COMMENT [facility] Comment: EXPLANATORY NOTE: ? The Pap is a screening test for cervical cancer. It is ?? not a diagnostic test and is subject to false negative ?? and false positive results. It is most reliable when a ?? satisfactory sample, regularly obtained, is submitted ?? with relevant clinical findings and history, and when ?? the Pap result is evaluated along with historic and ?? current clinical information. ?? COMMENT: This Pap test has been evaluated with computer assisted technology. [facility] Car Parker: SEE COMMENT [facility] Comment: BKCT(ASCP) CT screening location: [address] HPV nRNA E6/E7 Not Detected Not Detected [facility] Comment: Methodology: Senior Asp Net Developer-Mediated Amplification This assay detects E6/E7 viral messenger RNA (mRNA) from 14 high-risk HPV types (16,18,31,33,35,39,45,51,52,56,58,59,66,68). ? Cervical sources are required for HPV testing. If a vaginal source from a patient who has had a total hysterectomy with removal of cervix was ?? submitted, please contact the testing laboratory for alternative testing options. ?? For additional information, please refer to http://Therm[employer] Control/faq/FEZ721p3 (This link if provided for information/ educational purposes only.) Interpretation/Re sult: Negative for intraepithelial lesion or malignancy. [facility] LMP: NONE GIVEN [facility] Neisseria gonorrhoeae RNA, TMA, Urogenital NOT DETECTED NOT DETECTED [facility] Prev. BX: NONE GIVEN [facility] Prev. PAP: NONE GIVEN [facility] SOURCE: None given [facility] Statement Of Adequacy: SEE COMMENT [facility] Comment: Satisfactory for evaluation. Endocervical/transformation zone component present. Trichomonas vaginalis, QL, TMA, PAP Vial NOT DETECTED NOT DETECTED [facility] Comment: The analytical performance characteristics of this assay have been determined by [employer]. The modifications have not been cleared or approved by the FDA. This assay has been validated pursuant to the CLIA regulations and is used for clinical purposes. ?? For additional information, please refer to http://Look.io..[employer]/ faq/Trichomonastma (This link is being provided for information/ educational purposes only.) ?? NO COLLECTION DATE RECEIVED. WE HAVE USED THE DATE THE SPECIMEN WAS RECEIVED BY THIS LABORATORY THE COLLECTION DATE. IF THIS IS INCORRECT, PLEASE CONTACT CLIENT SERVICES. PHONE NUMBER: ?? 02/19/2022 9:23 AM EDT Filomena Barnes NP LAB PATHOLOGY ORDERABLES Final Result Performing Organization Address [facility] [address] * HEPATITIS C AB W/REFL TO HCV RNA, QN, PCR (01/12/2022 10:42 AM EDT) HEPATITIS C ANTIBODY NON-REACT NIC NON-REACT NIC [facility] INDEX 0.08 <1.00 [facility] Comment: ?? HCV antibody was non-reactive. There is no laboratory ?? evidence of HCV infection. ?? In most cases, no further action is required. However, if recent HCV exposure is suspected, a test for HCV RNA (test code 24333) is suggested. ?? For additional information please refer to http://Look.io..[employer]/faq/ALR02b8 (This link is being provided for informational/ educational purposes only.) ?? 01/12/2022 10:4 2 AM EDT Filomena Barnes NP HISTORICAL/NON ORDERABLE LABS F inal Result Performing Organization Address [facility] Number [facility] [address] * HIV 1/2 ANTIGEN/ANTIBODY,FOURTH GENERATION W/RFL (01/12/2022 10:42 AM EDT) HIV-1/2 ANTIGEN AND ANTIBODIES, 4TH GENERATION W/ REFLEX NON-REACT NIC NON-REACT NIC [facility] Comment: HIV-1 antigen and HIV-1/HIV-2 antibodies were not detected. There is no laboratory evidence of HIV infection. ?? PLEASE NOTE: This information has been disclosed to you from records whose confidentiality may be protected by state law. ??If your state requires such protection, then the state law prohibits you from making any further disclosure of the information without the specific written consent of the person to whom it pertains, or as otherwise permitted by law. A general authorization for the release of medical or other information is NOT sufficient for this purpose. ? For additional information please refer to http://Look.io..Fox Networks/faq/MLP242 (This link is being provided for informational/ educational purposes only.) ? The performance of this assay has not been clinically validated in patients less than 2 years old. ?? 01/12/2022 10:4 2 AM EDT Filomena Barnes FRAUD EXAMINER LAB BLOOD ORDERABLES Final Resu lt [facility] [address] * (ABNORMAL) LIPID PANEL, STANDARD (01/12/2022 10:42 AM EDT) Chol/HDLC Ratio 5.1(H) <5.0 (calc) [facility] Cholesterol, Total 172 <200 mg/dL [facility] HDL Cholesterol 34(L) > OR = 50 mg/dL [facility] LDL Cholesterol 114(H) mg/dL (calc) [facility] Comment: Reference range: <100 ?? Desirable range <100 mg/dL for primary prevention; ?? <70 mg/dL for patients with CHD or diabetic patients ?? with > or = 2 CHD risk factors. ?? LDL-C is now calculated using the Gaston ?? calculation, which is a validated novel method providing ?? better accuracy than the Friedewald equation in the ?? estimation of LDL-C. ?? Keyshawn SALGADO et al. SANTANA. 2013;310(19): 5729-5799 ?? (http://education.Brandlive/faq/ATH437) Non-HDL Cholesterol 138(H) <130 mg/dL (calc) [facility] Comment: For patients with diabetes plus 1 major ASCVD risk ?? factor, treating to a non-HDL-C goal of <100 mg/dL ?? (LDL-C of <70 mg/dL) is considered a therapeutic ?? option. Triglycerides 126 <150 mg/dL [facility] 01/12/2022 10:4 2 AM EDT us Filomena Barnes FRAUD EXAMINER LAB BLOOD ORDERABLES Final Resu lt [facility] [address] from Last 3 Months or Most Recently Relevant to Health Maintenance Insurance [facility] [employer] Care Teams Kiln Pusher Relationship Specialty Start Date End Date Inés Brunner MD [address] [place] [address] PCP - General Family Medicine 04/13/22
[2025-01-04 16:36] LABS: Estimated Average Glucose 97 mg/dL; Hemoglobin A1C 103.5413 umol/L; Total Hemoglobin (HGBA1C) 3352.6444 umol/L
[2025-01-04 16:41] LABS: Alanine Aminotransferase 28 U/L (0-31); Albumin Level 3.9 g/dL (3.5-5.0); Alkaline Phosphatase 83 U/L (39-117); Anion Gap 12 (12-20); Aspartate Amino Transferase 28 U/L (5-31); Blood Urea Nitrogen 13 mg/dL (9-16); Calcium 9.2 mg/dL (8.4-10.2); Carbon Dioxide 25 mmol/L (22-29); Chloride 107 mmol/L (96-108); Cholesterol 173 mg/dL (<200); Estimated Glomerular Filt Rate > 60; Glucose Random 89 mg/dL (60-115); HDL Cholesterol 36 mg/dL (>40); LDL Cholesterol Calculated 114 mg/dL (<100); Potassium 3.8 mmol/L (3.3-5.1); Sodium 140 mmol/L (135-145); Total Protein 7.1 g/dL (6.5-8.0); Triglycerides 118 mg/dL (<150)
== END 2025-01-04 14:28 | disposition home or self-care (01) ==
LOC: HO.HHCL 14:27
PROVIDERS: Visit Provider General Practice
DX: E66.812 Obesity, class 2 (principal); Z68.37 Body mass index [BMI] 37.0-37.9, adult
CPT/HCPCS: 36415; 80053; 80061; 83036

== ENCOUNTER 2025-04-29 13:23 | Outpatient (REF) | payer OTHER, SELFPAY ==
--- OUTSIDE RECORDS SUMMARY | 2025-04-29 15:39 | XMS_ITS | Encounter Summary ---
Author Organization [employer] Address [address] [facility] [address] [place] [address] Care Team Providers Care Vehicle Operator Technician Name Role Phone Inés Brunner MD Primary Care Provider [phone] Reason for Visit * Reason Comments Med Refill Encounter Details Date Type Department Care Team ([facility] st Contact Info) Description 01/02/2025 Refill [facility] [address] [place] [address] Inés Brunner MD [address] [place] [address] Social History Tobacco Use Types Packs/Day Years [...] the past 12 months, has t he [employer], gas, oil or water [employer] threatened to shut off services in your [...] down Not at all 01/03/2025 12:09 PM Inés Hoskins MD Trouble concentrating on things, such as [...] documented as of this encounter Care Teams Vehicle Operator Technician Relationship Specialty Start Date End Date Inés Brunner MD [address] [place] [address] PCP - General Family Medicine 04/13/22 documented as of this encounter
--- OUTSIDE RECORDS SUMMARY | 2025-04-29 15:40 | XMS_ITS | Encounter Summary ---
Author Organization [employer] Address [address] [facility] [address]t [place] [address] Care Team Providers Care Final Finisher Forging Dies Name Role Phone Inés Brunner MD Primary Care Provider [phone] Encounter Details Date Type Department Care Team (Late st Contact Info) Description 10/19/2022 Abstract [facility] [address] [place], [place] [phone] Inés Brunner MD [address] [place], [place] [phone] Social History Tobacco Use Types Packs/Day Years [...] on filedocumented in this encounter Care Teams Final Finisher Forging Dies Relationship Specialty Start Date End Date Inés Brunner MD [address] [place] [address] PCP - General Family Medicine 04/13/22 documented as of this encounter
--- OUTSIDE RECORDS SUMMARY | 2025-04-29 15:40 | XMS_ITS | Clinical Summary ---
Author Organization [facility] Address [address] [facility] [facility] [address] [place] [address] Care Team Providers Care Golf Ball Marker Name Role Phone Inés Brunner MD Primary Care Provider [phone] Allergies Active Allergy Reactions Criticality Noted Date Comments Apple Juice Itching 10/20/2022 Itchy and rash on lips. Plums too Pear Itching 10/20/2022 Itchy and rash on lips Medications EPINEPHrine (EpiPen 2-Liang) 0.3 MG/0.3ML injection syringe inject 0.3 milliliter by intramuscular route once as needed for anaphylaxis, then call 911 2 Active Blood Pressure kit Take by [facility] (Non-drug; combo) route every day 2 Active Diclofenac Sodium 1 % cream Apply 1 Application topically if needed in the morning and at bedtime (back or hip pain). 120 g 3 4 Active cetirizine (ZyrTEC) 10 MG tablet Take 1 tablet (10 mg) by mouth Once per day. 90 tablet 3 5 Active cholecalcifero l (Vitamin D High Potency) 25 MCG (1000 UT) capsule Take 1 capsule (25 mcg) by mouth Once per day. 90 capsule 3 5 Active fluticasone (Flonase Allergy Relief) 50 MCG/ACT nasal sprayIndicatio ns:Seasonal allergies inhale 2 spray by intranasal route every day in each nostril 48 g 3 5 Active Active Problems Problem Noted Date Diagnosed Date [...] Encounters Date Type Department Care Team Description 02/10/2025 Results Follow-Up [facility] [address] [place] [address] Inés Brunner MD Lipid Panel, Standard, Comprehensive Metabolic Panel, Hemoglobin A1c from Last 3 Months Immunizations Immunization Administration [...] 90 01/02/2025 3:57 PM EDT Temperature 36.4 C (97.6 F) 01/02/2025 3:57 PM EDT Respiratory Rate 20 01/02/2025 3:57 PM EDT [...] CT Colonography 1975 Colonoscopy 1975 FIT 1975 Sigmoidoscopy 1975 Disability Screening 1975 Hepatitis B Vaccines (3 of 3 - 19+ 3-dose series) 07/10/2010 05/15/2010, 11/11/2008 FOBT 11/11/2023 11/10/2022 COVID-19 Vaccine ( season) 2025 Influenza Vaccine (#1) 2025 Colorectal Cancer Screening 11/10/2025 FIT DNA/Cologuard 11/10/2025 11/10/2022 Alcohol/Substance Use Screening 01/03/2026 01/03/2025 Depression Screening 01/03/2026 01/03/2025, 01/04/20 Family Planning (PISQ) 01/03/2026 01/03/2025 SDOH Screening 01/03/2026 01/03/2025 Tobacco Screening 01/03/2026 01/03/2025 Mammogram 04/16/2026 04/16/2024, 08/08/2022, 04/05/2022, Additional history exists Cervical Cancer Screening 02/19/2027 HPV/Cotest 02/19/2027 02/19/2022, 06/23/2016 Pap Smear 02/19/2027 02/19/2022 DTaP/Tdap/Td Vaccines (2 - Td or Tdap) 06/24/2027 06/24/2017, 11/11/2008 Zoster Vaccines (1 of 2) 2027 Lipid Panel 01/04/2030 01/04/2025, 01/12/2022 RSV Patients and Patients Aged 60 years [...] Years) and At-Risk Patients (6 to 49) Years Aged Out No longer eligible based on patient's age to complete this topic RSV under 20 months Aged Out No longe r eligible based on patient's age to complete this topic Rotavirus Vaccines Aged Out No longer eligible based on patient's age to complete this topic Procedures Procedure Name Priority Date/Time Associated Diagnosis Comments LIPID PANEL, STANDARD Routine 01/04/2025 2:29 PM EDT Class 2 obesity without serious comorbidity with body mass index (BMI) of 37.0 to 37.9 in adult, unspecified obesity type BI MAMMOGRAM SCREENING TOMOSYNTHESIS BILATERAL Routine 04/16/2024 12:45 PM EDT LAB COLOGUARD COLON CANCER SCREEN Routine 11/10/2022 THINPREP IMAGING PAP AND HPV MRNA E6/E7, WITH CT/NG, TRICHOMONAS Routine 02/19/2022 9:23 AM EDT ZZZ HISTORICAL HEPATITIS C AB W/REFL TO HCV RNA, QN, PCR Routine 01/12/2022 10:42 AM EDT HIV 1/2 ANTIGEN/ANTIBODY, FOURTH GENERATION W/RFL Routine 01/12/2022 10:42 AM EDT from Last 3 Months or Most Recently Relevant to Health Maintenance Results * (ABNORMAL) Lipid Panel, Standard (01/04/2025 2:29 PM EDT) Triglycerides 118 <150 mg/dL [facility] Comment:Desirable Triglyceri de: less than 150 mg/dLBorderline High Triglyceride 150-199 mg/dLHigh Triglyceride: 200-499 mg/dLVery High Triglyceride: greater than or equal to 5OO mg/dL Cholesterol 173 <200 mg/dL [facility] Comment:Desirable Cholestero l: less than 200 mg/dLBorderline High Cholesterol: 200-239 mg/dLHigh Cholesterol: greater than 239 mg/dL LDL Cholesterol Calculated 114(H) <100 mg/dL [facility] Comment:Desirable LDL: less than 100 mg/dLNear Optimal/Above Optimal LDL: 110- 129 mg/dLBorderline High LDL: 130-159 mg/dLHigh LDL: 160-189 mg/dLVery High LDL: greater than or equal to 190 mg/dL HDL Cholesterol 36(L) >40 mg/dL [facility] Comment:Desirable HDL: great er than 40 mg/dL Note: This HDL assay may give artificially low results in patients with liver disease. Blood Venous blood specimen / Unknown 01/04/2025 2:29 PM EDT 01/04/2025 4:12 PM EDT us Inés Brunner MD LAB BLOOD ORDERABLES Final Res ult [facility] [address] [place] [address] [phone] * BI Mammogram Screening Tomosynthesis Bilateral (04/16/2024 12:45 PM EDT) Anatomical Region Laterality Modality Breast Bilateral Mammography 04/16/2024 12:4 5 PM EDT Narrative 05/11/2024 12:14 PM EDT [facility] [address] [place] [address] Mammography Report Signed Patient: Sarah Perez I MR#: [id number] : 1975 Acct:[id number] Age/Sex: 48 / F ADM Date: 04/16/24 Loc: HO.MAMMO Attending Dr: Inés Brunner MD Ordering Physician: Inés Brunner Results: 1Negative Date of Service: 04/16/24 Follow Up: 1 Year From Orig ina Mammogram Procedure(s): MM tomosynthesis screening BI Accession Number(s): [id number] cc: Inés Brunner EXAMINATION: MM SCREENING DIGITAL [...] Angle Malcolm DO 05/11/2024 12:11 PM EDT Dictated By: Angle Malcolm DO Signed By: <Electronically signed by Angle Malcolm DO in OV> 05/11/24 1211 DD/ 1245 TD/TT: 04/16/24 1305 Graduate Teaching Associate: Procedure Note Donotmusater, Image - 05/11/2024 [facility] [address] [place], [place] [address] Mammography Report Signed Patient: Sarah Perez IMR#: [id number] : 1975Acct:[id number] Age/Sex: 48 / FADM Date: 04/16/24 Loc: HO.MAMMO Attending Dr: Inés Brunner MD Ordering Physician: Luis Miguel Brunnerults: 1Negative Date of Service: 04/16/24Follow Up: 1 Year From Orig inal Mammogram Procedure(s): MM tomosynthesis screening BI Accession Number(s): [id number] cc: Inés Brunner EXAMINATION: MM SCREENING DIGITAL [...] Angle Malcolm DO 05/11/2024 12:11 PM EDT Dictated By: Angle Malcolm DO Signed By: <Electronically signed by Angle Malcolm DO in OV> 05/11/24 1211 DD/ 1245 TD/TT: 04/16/24 1305 Graduate Teaching Associate: us Inés Brunner MD IMG BI PROCEDURES Edited Resul t - Final * Cologuard?? colon cancer screening (11/10/2022) Pathologist [facility] [place] Cologuard Cancer Screen Negative Stool 11/10/2022 Inés Brunner MD LAB MOLECULAR DIAGNOSTICS ORDE RABLES Final Result * THINPREP TIS PAP AND HPV mRNA E6/E7, CT/NG, TRICH (02/19/2022 9:23 AM EDT) Pathologist [facility] Chlamydia trachomatis RNA, TMA, Urogenital NOT DETECTED NOT DETECTED [facility] Clinical Information: None given [facility] COMMENT SEE COMMENT [facility] Comment: The analytical performance characteristics of this assay, when used to test SurePath(TM) specimens have been determined by [facility]. The modifications have not been cleared or approved by the FDA. This assay has been validated pursuant to the CLIA regulations and is used for clinical purposes. For additional information, please refer to https://education.English Helper/faq/QCY221 (This link is being provided for information/ educational purposes only.) COMMENT SEE COMMENT [facility] Comment: EXPLANATORY NOTE: The Pap is a screening test for cervical cancer. It is not a diagnostic test and is subject to false negative and false positive results. It is most reliable when a satisfactory sample, regularly obtained, is submitted with relevant clinical findings and history, and when the Pap result is evaluated along with historic and current clinical information. COMMENT: This Pap test has been evaluated with computer assisted technology. [facility] Private Banker: SEE COMMENT [facility] Comment: BK,CT(ASCP) CT screening location: [address] HPV nRNA E6/E7 Not Detected Not Detected [facility] Comment: Methodology: Special Service Officer-Mediated Amplification This assay detects E6/E7 viral messenger RNA (mRNA) from 14 high-risk HPV types (16,18,31,33,35,39,45,51,52,56,58,59,66,68). Cervical sources are required for HPV testing. If a vaginal source from a patient who has had a total hysterectomy with removal of cervix was submitted, please contact the testing laboratory for alternative testing options. For additional information, please refer to http://education.English Helper/faq/UIX626g0 (This link if provided for information/ educational purposes only.) Interpretation/Re sult: Negative for intraepithelial lesion or malignancy. [facility] LMP: NONE GIVEN [facility] Neisseria gonorrhoeae RNA, TMA, Urogenital NOT DETECTED NOT DETECTED [facility] Prev. BX: NONE GIVEN [facility] Prev. PAP: NONE GIVEN [facility] SOURCE: None given [facility] Statement Of Adequacy: SEE COMMENT [facility] Comment: Satisfactory for evaluation. Endocervical/transformation zone component present. Trichomonas vaginalis, QL, TMA, PAP Vial NOT DETECTED NOT DETECTED [facility] Comment: The analytical performance characteristics of this assay have been determined by [facility]. The modifications have not been cleared or approved by the FDA. This assay has been validated pursuant to the CLIA regulations and is used for clinical purposes. For additional information, please refer to http://Web Wonks.English Helper/ faq/Trichomonastma (This link is being provided for information/ educational purposes only.) NO COLLECTION DATE RECEIVED. WE HAVE USED THE DATE THE SPECIMEN WAS RECEIVED BY THIS LABORATORY THE COLLECTION DATE. IF THIS IS INCORRECT, PLEASE CONTACT CLIENT SERVICES. PHONE NUMBER: 02/19/2022 9:23 AM EDT Filomena Barnes NP LAB PATHOLOGY ORDERABLES Final Result [facility] [address] * HEPATITIS C AB W/REFL TO HCV RNA, QN, PCR (01/12/2022 10:42 AM EDT) HEPATITIS C ANTIBODY NON-REACT NIC NON-REACT NIC [facility] INDEX 0.08 <1.00 [facility] Comment: HCV antibody was non-reactive. There is no laboratory evidence of HCV infection. In most cases, no further action is required. However, if recent HCV exposure is suspected, a test for HCV RNA (test code 60814) is suggested. For additional information please refer to http://Web Wonks.V-cube [place].Best Learning English/faq/RAW52v4 (This link is being provided for informational/ educational purposes only.) 01/12/2022 10:4 2 AM EDT Filomena Barnes NP HISTORICAL/NON ORDERABLE LABS F inal Result Performing Organization Address [facility] Co de Phone Number [facility] [address] * HIV 1/2 ANTIGEN/ANTIBODY,FOURTH GENERATION W/RFL (01/12/2022 10:42 AM EDT) HIV-1/2 ANTIGEN AND ANTIBODIES, 4TH GENERATION W/ REFLEX NON-REACT NIC NON-REACT NIC [facility] Comment: HIV-1 antigen and HIV-1/HIV-2 antibodies were not detected. There is no laboratory evidence of HIV infection. PLEASE NOTE: This information has been disclosed to you from records whose confidentiality may be protected by state law. If your state requires such protection, then the state law prohibits you from making any further disclosure of the information without the specific written consent of the person to whom it pertains, or as otherwise permitted by law. A general authorization for the release of medical or other information is NOT sufficient for this purpose. For additional information please refer to http://Web Wonks.[employer]-c[employer] [place].Best Learning English/faq/ACR561 (This link is being provided for informational/ educational purposes only.) The performance of this assay has not been clinically validated in patients less than 2 years old. 01/12/2022 10:4 2 AM EDT Filomena Barnes NP LAB BLOOD ORDERABLES Final Resu lt Performing Organization Address [facility] de Phone Number [facility] [address] from Last 3 Months or Most Recently Relevant to Health Maintenance Insurance [facility] Care Teams Golf Ball Marker Relationship Specialty Start Date End Date Inés Brunner MD [address] [place] [id number] PCP - General Family Medicine 04/13/22
== END 2025-04-29 13:24 | disposition home or self-care (01) ==
LOC: HO.MAMMO 13:23
PROVIDERS: PCP General Practice; Visit Provider General Practice
DX: Z12.31 Encounter for screening mammogram for malignant neoplasm of breast (principal)
CPT/HCPCS: 77063; 77067

== ENCOUNTER → 2025-04-29 13:30 | Outpatient (BNV) | payer OTHER, SELFPAY | PROVIDERS: PCP General Practice; Visit Provider Internal Medicine | DX: Z12.31 Encounter for screening mammogram for malignant neoplasm of breast (principal) | CPT/HCPCS: 77063; 77067 ==